=== PATIENT | male | born 1950 | race African-American/Black ===

== ENCOUNTER → 2016-06-06 | Outpatient (CLI) | payer MEDICARE, MEDICAID ==
[2016-06-08 06:06] LABS: ANGIOTENSIN-CONVERTING ENZYME 72 U/L (14-82)
[2016-06-10 07:21] LABS: LYME DISEASE IGG AND IGM AB <0.91 ISR (0.00-0.90)
[2016-06-12 07:29] LABS: HLA B 27 DISEASE ASSOCIATION Negative (.)
== END ==
LOC: RAD 09:29
PROVIDERS: ATTEND Ophthalmology
DX: H20.9 Unspecified iridocyclitis (principal); E11.9 Type 2 diabetes mellitus without complications; H40.1131 Primary open-angle glaucoma, bilateral, mild stage; H04.123 Dry eye syndrome of bilateral lacrimal glands; H25.13 Age-related nuclear cataract, bilateral
CPT/HCPCS: 36415; 71020; 82164; 85652; 86592; 86617; 86618; 86812